=== PATIENT | male | born 1945 | race Caucasian/White ===

== ENCOUNTER 2018-05-25 15:29 | Emergency (ER) | payer OTHER ==
[~2018-05-25] VITALS: Ht 180.3 cm; Wt 86.2 kg
[2018-05-25 15:52] VITALS: BP 144/77
[2018-05-25] MEDS ORDERED: TDAP [DIPH/PERTUSSIS/TET] 0.5 ML VIAL IM ONE ×2 (16:18→16:30)
[2018-05-25] MEDS ORDERED: BACI/NEOM/POLY B OINT PKT 1 UDPKT PACKET TP ONE (16:30)
== END 2018-05-25 16:59 | disposition home or self-care (01) ==
LOC: ER 15:44
DX: S01.112A Laceration without foreign body of left eyelid and periocular area, initial encounter (principal); S51.812A Laceration without foreign body of left forearm, initial encounter; I10 Essential (primary) hypertension; W01.198A Fall on same level from slipping, tripping and stumbling with subsequent striking against other object, initial encounter; Y93.89 Activity, other specified; Y92.410 Unspecified street and highway as the place of occurrence of the external cause; Y99.8 Other external cause status
CPT/HCPCS: 12011; 90471; 90715; 99283; A4606; A6402; A6403

== ENCOUNTER 2023-04-16 18:37 | Emergency (ER) | payer MEDICARE, OTHER ==
[~2023-04-16] VITALS: Ht 182.9 cm; Wt 81.6 kg
[2023-04-16] MEDS ORDERED: TDAP [DIPH/PERTUSSIS/TET] 0.5 ML VIAL IM ONE (19:23)
[2023-04-16] MEDS: TDAP [DIPH/PERTUSSIS/TET] 0.5 ML VIAL IM ONE (19:25)
[2023-04-16] MEDS ORDERED: LIDOCAINE 1%-EPI 1:100,000 20 ML VIAL ONE (20:41)
[2023-04-16] MEDS: LIDOCAINE 1%-EPI 1:100,000 50 ML VIAL IJ ONE (20:41)
[2023-04-16 22:07] VITALS: BP 154/97; TEMP 98.1; O2SAT 99
== END 2023-04-16 22:09 | disposition home or self-care (01) ==
LOC: ER 18:37
DX: S01.01XA Laceration without foreign body of scalp, initial encounter (principal); S09.90XA Unspecified injury of head, initial encounter; I10 Essential (primary) hypertension; W18.2XXA Fall in (into) shower or empty bathtub, initial encounter; Y93.89 Activity, other specified; Y92.89 Other specified places as the place of occurrence of the external cause; Y99.8 Other external cause status
CPT/HCPCS: 12004; 70450; 90471; 90715; 99285; A4649; A6403; J3490

== ENCOUNTER 2024-10-31 14:08 | Emergency (ER) | payer MEDICARE ==
[~2024-10-31] VITALS: Ht 182.9 cm; Wt 83.9 kg
[2024-10-31 15:43] VITALS: BP 133/81; TEMP 98.3; O2SAT 99
== END 2024-10-31 15:44 | disposition home or self-care (01) ==
LOC: ER 14:21
DX: S01.81XA Laceration without foreign body of other part of head, initial encounter (principal); R55 Syncope and collapse; I10 Essential (primary) hypertension; W18.39XA Other fall on same level, initial encounter; Y93.89 Activity, other specified; Y92.89 Other specified places as the place of occurrence of the external cause; Y99.8 Other external cause status
CPT/HCPCS: 12011; 70450; 99284; A6403